=== PATIENT | male | born 2000 | race African-American/Black ===

== ENCOUNTER 2019-05-13 15:20 | Emergency (ER) | payer BC ==
[~2019-05-13] VITALS: Ht 177.8 cm; Wt 90.0 kg
[2019-05-13 15:21] VITALS: BP 154/76
[2019-05-13] MEDS ORDERED: AK-T0.3S OD (16:00)
== END 2019-05-13 16:05 | disposition home or self-care (01) ==
LOC: M ED 15:20
DX: H10.9 Unspecified conjunctivitis (principal)

== ENCOUNTER 2025-03-03 16:49 | Emergency (ER) | payer BC ==
[~2025-03-03] VITALS: Ht 170.2 cm; Wt 108.6 kg
[~2025-03-03 16:49] MED LIST: AUGM875T28 PO; CIPR7.5D5 AD; IBUP-1022 PO; TOBR0.3S30 OD
[2025-03-03] MEDS ORDERED: ACET-907 PO (17:07)
[2025-03-03] MEDS: LIDOCAINE 5% (LIDODERM) PATCH TD ONE (18:14)
[2025-03-03 18:19] VITALS: BP 156/98; TEMP 98.7; O2SAT 100
== END 2025-03-03 18:20 | disposition home or self-care (01) ==
LOC: M ED 16:49
DX: J02.9 Acute pharyngitis, unspecified (principal); S29.012A Strain of muscle and tendon of back wall of thorax, initial encounter; Y92.9 Unspecified place or not applicable; Y93.9 Activity, unspecified; Y99.9 Unspecified external cause status; Z79.1 Long term (current) use of non-steroidal anti-inflammatories (NSAID)